=== PATIENT | male | born 1960 | race Caucasian/White ===

== ENCOUNTER 2019-02-25 03:37 | Emergency (ER) | payer MEDICAID ==
[~2019-02-25] VITALS: Ht 157.5 cm; Wt 65.0 kg
[~2019-02-25 03:37] MED LIST: ALPR0.254 PO; CARV6.2512 PO; METF500T17 PO; OMEP-110 PO
[2019-02-25 03:39] VITALS: BP 181/107
[2019-02-25] MEDS ORDERED: MAALOX/HYOSCYAMINE/LIDOCAINE 45 ML BTL ONE (03:55)
[2019-02-25] MEDS ORDERED: MAALOX/HYOSCYAMINE/LIDOCAINE 45 ML BTL PO ONE (04:00)
== END 2019-02-25 04:10 | disposition home or self-care (01) ==
LOC: ED 03:59 → MERGE 03:59 → ED 04:10
DX: K21.9 Gastro-esophageal reflux disease without esophagitis (principal); R14.3 Flatulence; F17.200 Nicotine dependence, unspecified, uncomplicated; I10 Essential (primary) hypertension; E11.9 Type 2 diabetes mellitus without complications; G43.909 Migraine, unspecified, not intractable, without status migrainosus
CPT/HCPCS: 99282

== ENCOUNTER 2019-03-08 23:34 | Emergency (ER) | payer MEDICAID ==
[~2019-03-08] VITALS: Ht 177.8 cm; Wt 85.0 kg
[2019-03-08 23:42] VITALS: BP 115/73
== END 2019-03-09 00:34 | disposition left against medical advice (07) ==
LOC: MERGE 03-09 00:28 → ED 03-09 00:28
DX: R51 Headache (principal); Z53.21 Procedure and treatment not carried out due to patient leaving prior to being seen by health care provider

== ENCOUNTER 2019-05-16 11:21 | Emergency (ER) | payer MEDICAID, MEDICARE ==
[~2019-05-16] VITALS: Ht 182.9 cm; Wt 68.2 kg
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
[2019-05-16] MEDS ORDERED: TRAZ50TA66 PO (11:42)
[2019-05-16 12:00] VITALS: BP 168/113
--- NOTE | 2019-05-16 12:00 | NUR ---
PT UPRIGHT ON GURNEY AWAKE & COMFORTABLE, WATCHING TV, RESPONDS APPROP TO STAFF, NAD, COMFORT MEASURES PROVIDED, CALL LIGHT WITHIN REACH.
--- NOTE | 2019-05-16 12:12 | NUR ---
PT AMBULATED TO BR STEADILY/INDEP, UNABLE TO VOID AT THIS TIME, BACK TO GURLEDBETTER, UPRIGHT & COMFORTABLE, RESPONDS APPROP TO STAFF, NAD, COMFORT MEASURES PROVIDED, CALL LIGHT WITHIN REACH.
[2019-05-16 12:13] LABS: BASOPHILS # (AUTO) 0.02 x10^3/uL (0-0.1); BASOPHILS % (AUTO) 0 % (0-1); EOSINOPHILS # (AUTO) 0.05 x10^3/uL (0-0.4); EOSINOPHILS % (AUTO) 1 % (1-7); LYMPHOCYTES # (AUTO) 1.46 x10^3/uL (1-3.4); LYMPHOCYTES % (AUTO) 26 % (22-44); MD NO; MEAN CORPUSCULAR HEMOGLOBIN 29.5 pg (27.5-34.5); MEAN CORPUSCULAR HGB CONC 33.5 g/dL (33.2-36.2); MEAN PLATELET VOLUME 6.4 fL (7.4-10.4); MONOCYTES # (AUTO) 0.44 x10^3/uL (0.2-0.8); MONOCYTES % (AUTO) 8 % (2-9); NEUTROPHILS # (AUTO) 3.76 x10^3/uL (1.8-6.8); NEUTROPHILS % (AUTO) 66 % (42-75); PLATELET COUNT 293 x10^3/uL (130-400); RED BLOOD COUNT 4.81 x10^6/uL (4.38-5.82); RED CELL DISTRIBUTION WIDTH 14.9 % (9.4-14.8)
[2019-05-16 12:25] LABS: ALANINE AMINOTRANSFERASE 31 U/L (12-78); ALBUMIN 3.7 g/dL (3.4-5.0); ANION GAP 5 mmol/L (5-15); CALCIUM 8.1 mg/dL (8.5-10.1); CHLORIDE 107 mmol/L (98-107); CREATININE 0.71 mg/dL (0.7-1.3)
[2019-05-16 12:28] LABS: ALKALINE PHOSPHATASE 119 U/L (45-117); BILIRUBIN,TOTAL 0.3 mg/dL (0.2-1.0); TOTAL PROTEIN 7.7 g/dL (6.4-8.2)
--- NOTE | 2019-05-16 12:56 | NUR ---
Patient given discharge instructions and they have confirmed that they understand the instructions. Patient ambulatory with steady gait.
== END 2019-05-16 12:57 | disposition home or self-care (01) ==
LOC: ED 12:50
DX: R42 Dizziness and giddiness (principal)
CPT/HCPCS: 36415; 80053; 83690; 85025; 99283

== ENCOUNTER 2020-01-09 00:38 | Emergency (ER) | payer MEDICAID ==
[~2020-01-09] VITALS: Ht 170.2 cm; Wt 70.4 kg
[~2020-01-09 00:38] MED LIST changes: +TRAZ50TA66 PO
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
[2020-01-09 01:26] VITALS: BP 131/86
[2020-01-09] MEDS ORDERED: ACETAMINOPHEN 325 MG TABLET PO ONE (01:30)
--- NOTE | 2020-01-09 01:49 | NUR ---
PATIENT GIVEN SUPPLIES TO IMPROVE ON SELF CARE AT HOME.
--- NOTE | 2020-01-09 02:20 | NUR ---
PATIENT BECAME VERBALLY AGGRESSIVE WITH PROVIDER AND NURSE. PATIENT ESCORTED OUT OF ER. PATIENT AMBULATORY WITHOUT COMPLICATIONS. PATIENT STATED THAT HE WAS DISPLEASED WTIH THE FACT THAT WE WERE NOT GIVING HIM A PRESCRIPTION FOR A NARCOTIC
== END 2020-01-09 02:23 | disposition home or self-care (01) ==
LOC: ED 02:01
DX: L03.114 Cellulitis of left upper limb (principal); M79.632 Pain in left forearm; M79.631 Pain in right forearm; F10.10 Alcohol abuse, uncomplicated; F17.210 Nicotine dependence, cigarettes, uncomplicated; Z72.9 Problem related to lifestyle, unspecified; Y90.0 Blood alcohol level of less than 20 mg/100 ml
CPT/HCPCS: 99283

== ENCOUNTER 2020-01-31 12:57 | Emergency (ER) | payer MEDICAID ==
[~2020-01-31] VITALS: Ht 167.6 cm; Wt 70.1 kg
[2020-01-31 13:01] VITALS: BP 153/91
[2020-01-31] MEDS ORDERED: SODIUM CHLORIDE FLUSH 10ML SYR IVF ONE (13:30)
[2020-01-31] MEDS ORDERED: BUPIVACAINE/PF-EPI 0.25% 1:200K SQ ONE (13:30)
[2020-01-31] MEDS ORDERED: LIDOCAINE-MPF 1%, 5ML INFIL ONE (13:30)
[2020-01-31] MEDS ORDERED: VANCOMYCIN PER PHARMACY MC ONE (13:30)
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
[2020-01-31] MEDS ORDERED: VANCOMYCIN 1,500 MG in SODIUM CHLORIDE 0.9% 250 ML IV ONE (14:00)
[2020-01-31] MEDS ORDERED: AMPICILLIN/SULBACTAM 3 GM in SODIUM CHLORIDE 0.9% 100 ML IV ONE (14:00)
[2020-01-31 14:04] LABS: ALBUMIN 3.1 g/dL (3.4-5.0); CALCIUM 8.4 mg/dL (8.5-10.1); CREATININE 1.04 mg/dL (0.7-1.3)
--- NOTE | 2020-01-31 14:13 | NUR ---
TASK RN: HERBERT INITIATED. NO BC DRAWN PER ERP. I&D IN PROGRESS. PT REFUSING BP MONITORING
[2020-01-31 14:20] LABS: ANION GAP 3 mmol/L (5-15); CHLORIDE 107 mmol/L (98-107)
[2020-01-31 14:37] LABS: BASOPHILS # (AUTO) 0.03 x10^3/uL (0-0.1); BASOPHILS % (AUTO) 0 % (0-1); EOSINOPHILS # (AUTO) 0.11 x10^3/uL (0-0.4); EOSINOPHILS % (AUTO) 2 % (1-7); LYMPHOCYTES % (AUTO) 24 % (22-44); MD NO; MEAN CORPUSCULAR HEMOGLOBIN 28.6 pg (27.5-34.5); MEAN CORPUSCULAR HGB CONC 32.2 g/dL (33.2-36.2); MONOCYTES # (AUTO) 0.61 x10^3/uL (0.2-0.8); MONOCYTES % (AUTO) 9 % (2-9); NEUTROPHILS # (AUTO) 4.77 x10^3/uL (1.8-6.8); NEUTROPHILS % (AUTO) 66 % (42-75); PLATELET COUNT 324 x10^3/uL (130-400); RED BLOOD COUNT 4.36 x10^6/uL (4.38-5.82); RED CELL DISTRIBUTION WIDTH 15.1 % (9.4-14.8)
[2020-01-31] MEDS ORDERED: HYDROcodone/APAP 5/325 TABLET PO ONE (15:30)
--- NOTE | 2020-01-31 15:32 | NUR ---
AWAITING PUMP TO ADMIN VANCO.
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
--- NOTE | 2020-01-31 16:56 | NUR ---
PT STATING HE WANTS TO LEAVE, HE HAS "AN EMERGENCY, I NEED TO GET OUTTA HERE". PT STERLING NOT DONE INFUSING, REFUSING SCRIPT ON DC. VERA MADE AWARE
== END 2020-01-31 16:55 | disposition home or self-care (01) ==
LOC: ED 13:12
DX: L03.114 Cellulitis of left upper limb (principal); L03.012 Cellulitis of left finger
CPT/HCPCS: 26010; 36415; 73140; 80048; 82040; 85025; 96365; 96367; 99284; J0295; J3370; J7050

== ENCOUNTER 2021-01-01 15:40 | Emergency (ER) | payer MEDICAID ==
[~2021-01-01] VITALS: Ht 172.7 cm; Wt 69.6 kg
[2021-01-01 16:42] LABS: BASOPHILS % (AUTO) 1 % (0-1); EOSINOPHILS % (AUTO) 1 % (1-7); LYMPHOCYTES % (AUTO) 11 % (22-44); MEAN CORPUSCULAR HEMOGLOBIN 27.7 pg (27.5-34.5); MEAN CORPUSCULAR HGB CONC 33.5 g/dL (33.2-36.2); MEAN PLATELET VOLUME 6.6 fL (7.4-10.4); MONOCYTES % (AUTO) 8 % (2-9); NEUTROPHILS % (AUTO) 80 % (42-75); PLATELET COUNT 412 x10^3/uL (130-400); RED BLOOD COUNT 4.23 x10^6/uL (4.38-5.82); RED CELL DISTRIBUTION WIDTH 14.8 % (9.4-14.8)
[2021-01-01 16:53] LABS: ALANINE AMINOTRANSFERASE 35 U/L (12-78); ALBUMIN 2.8 g/dL (3.4-5.0); ANION GAP 6 mmol/L (5-15); CALCIUM 8.7 mg/dL (8.5-10.1); CHLORIDE 100 mmol/L (98-107); CREATININE 0.83 mg/dL (0.7-1.3)
[2021-01-01 16:55] LABS: ALKALINE PHOSPHATASE 154 U/L (45-117); BILIRUBIN,TOTAL 0.3 mg/dL (0.2-1.0); TOTAL PROTEIN 8.2 g/dL (6.4-8.2)
--- NOTE | 2021-01-01 17:13 | NUR ---
Pt educated about stool sample. Pt states he does not need to go at this time. Continually asking for food, educated about NPO status until a provider assesses him.
[2021-01-01 17:14] VITALS: BP 157/93
[2021-01-01] MEDS ORDERED: LOPERAMIDE 2 MG CAPSULE PO ONE (17:30)
[2021-01-01] MEDS ORDERED: LOPERAMIDE 2 MG CAPSULE ONE (17:32)
--- NOTE | 2021-01-01 17:44 | NUR ---
BREAK RN. PT GIVEN FOOD PER REQUEST.
== END 2021-01-01 18:03 | disposition home or self-care (01) ==
LOC: ED 16:10
DX: R19.7 Diarrhea, unspecified (principal); E86.0 Dehydration; R00.0 Tachycardia, unspecified; F17.200 Nicotine dependence, unspecified, uncomplicated; Z88.2 Allergy status to sulfonamides; Z88.1 Allergy status to other antibiotic agents
CPT/HCPCS: 36415; 80053; 85025; 99283